=== PATIENT | male | born 1960 | race Caucasian/White ===

== ENCOUNTER 2019-04-23 00:02 | Emergency (ER) | payer OTHER ==
[2019-04-23 00:26] VITALS: BP 150/95; PULSE 95; TEMP 99.4; BMI 35.2
[2019-04-23] MEDS ORDERED: CEPHALEXIN MONOHYDRATE 500 MG CAPSULE (UD) PO ONE (00:31)
[2019-04-23] MEDS ORDERED: SULFAMETHOXAZOLE/TRIMETHOPRIM 800MG/160MG D.S. TABLET PO ONE (00:31)
[2019-04-23] MEDS ORDERED: IBUPROFEN 400 MG TABLET (FP) PO ONE ×2 (00:32→00:34)
[2019-04-23] MEDS ORDERED: CEPHALEXIN MONOHYDRATE 500 MG CAPSULE (UD) ONE (00:36)
[2019-04-23] MEDS ORDERED: SULFAMETHOXAZOLE/TRIMETHOPRIM 800MG/160MG D.S. TABLET ONE (00:40)
--- NOTE | 2019-04-23 01:18 | PDOC ---
History of Present Illness - General Chief Complaint: Abscess Boil Stated Complaint: SORE, FEVER Time Seen by Provider: 04/23/19 00:16 History Source: Patient Exam Limitations: No Limitations Past History - Past Medical History Allergies/Adverse Reactions: Allergies Allergy/AdvReac Type Severity Reaction Status Date / Time No Known Allergies Allergy Verified 04/23/19 00:26 Home Medications: Ambulatory Orders Cephalexin [Keflex] 500 mg PO QID #39 capsule 04/23/19 Sulfamethoxazole/Trimethoprim [Bactrim Ds -] 1 tab PO BID #19 tablet 04/23/19 - Psycho Social/Smoking Cessation Hx Smoking History: Never smoked Have you smoked in the past 12 months: No Information on smoking cessation initiated: No Hx Alcohol Use: No Drug/Substance Use Hx: No *Physical Exam - Vital Signs Last Vital Signs Temp Pulse Resp BP Pulse Ox 99.4 F 95 H 20 150/95 98 04/23/19 00:22 04/23/19 00:22 04/23/19 00:22 04/23/19 00:22 04/23/19 00:22 - Physical Exam General Appearance: No: Apparent Distress Extremity: positive: Other (large area of induration along R outer buttock ( around 4x4 cm) with center of fluctuance, +surrounding warmth and erythema, no streaking, rectal site not involved) Neurologic: positive: Alert, Normal Mood/Affect Procedures - Incision and Drainage I&D Site: Right: Buttock Betadine cleansed: Yes Anesthesia: 1% Lidocaine Blade Size: 11 Attempts: 1 Iodinated Packin/4 in Complications: none Dressing: Yes (sterile gauze) Medical Decision Making - Medical Decision Making 58 y/o M with no sig pmh presents with R buttock abscess x 2 days. Mentions he popped it himself and noticed pustular discharge and there is still some bleeding from the site so wanted to get it evaluated. Denies ever having an abscess before. Denies fever, sob, cp, abd pain, rectal pain. Abscess with surrounding cellulitis I&D done - mostly serosanguineous drainage with small amount of pus Site packed Given Motrin for pain Started on Keflex and bactrim due to cellulitis 04/23/19 01:15 Discharge - Discharge Information Problems reviewed: Yes Clinical Impression/Diagnosis: Abscess and cellulitis of gluteal region Condition: Stable Disposition: HOME - Admission No - Additional Discharge Information Prescriptions: Cephalexin [Keflex] 500 mg PO QID #39 capsule Sulfamethoxazole/Trimethoprim [Bactrim Ds -] 1 tab PO BID #19 tablet Prescription Drug Monitoring Program (I-STOP) results: I-STOP not reviewed - Follow up/Referral - Patient Discharge Instructions Patient Printed Discharge Instructions: DI for Incision and Drainage of a Skin Abscess Additional Instructions: Thank you for choosing [facility]. It was a pleasure taking care of you. You may take Motrin 600 mg every 6 hours by mouth as needed for mild to moderate pain. Take Motrin with food. Take antibiotics as prescribed. Recommend warm compresses over site as well Please return to ED in 2 days for wound check. Return to the Emergency Department if your symptoms worsen or persist, you have fever, increased redness, streaking or other concerning symptoms. - Post Discharge Activity Work/Back to School Note: Back to Work
== END 2019-04-23 01:37 | disposition home or self-care (01) ==
LOC: JER 00:02
PROC: 0H98XZZ Drainage of Buttock Skin, External Approach (ICD-10-PCS; principal; 2019-04-23)
DX: L02.31 Cutaneous abscess of buttock (principal)
CPT/HCPCS: 99283-25

== ENCOUNTER 2019-04-25 10:51 | Emergency (ER) | payer OTHER ==
[2019-04-25 10:55] VITALS: BP 135/93; PULSE 86; TEMP 98.4; BMI 35.3
[2019-04-25] MEDS ORDERED: BACITRACIN 15 GM TUBE TOPICAL OINTMENT TP ONE (12:16)
--- NOTE | 2019-04-25 12:16 | PDOC ---
Suture Removal/Wound Check HPI - History of Present Illness Chief Complaint: Revisit,Wound Recheck Stated Complaint: FOLLOW-UP Time Seen by Provider: 04/25/19 11:56 History Source: Yes: Patient Exam Limitations: Yes: Clinical Condition Treated at: [facility] Date of Last ED visit: 04/23/19 - Previous ED Treatment Type of procedure performed on last visit: Yes: I&D of Abscess Tetanus Immunization: Yes: Up to Date Antibiotics Prescribed: Yes Past History - Past Medical History Allergies/Adverse Reactions: Allergies Allergy/AdvReac Type Severity Reaction Status Date / Time No Known Allergies Allergy Verified 04/25/19 10:55 Home Medications: Ambulatory Orders Cephalexin [Keflex] 500 mg PO QID #39 capsule 04/23/19 Sulfamethoxazole/Trimethoprim [Bactrim Ds -] 1 tab PO BID #19 tablet 04/23/19 COPD: No - Psycho Social/Smoking Cessation Hx Smoking History: Never smoked Have you smoked in the past 12 months: No Hx Alcohol Use: No Drug/Substance Use Hx: No Suture Removal/Wound Check PE - Physical Exam Laceration/Wound Check Symptoms: denies: Pain, Fever, Chills, Redness, Discharge Pain Intensity: 2 Current Severity Level: Mild Location of Laceration/Wound: right: Pelvis (right gluteal) Pain Radiation: None *Review of Systems - Review of Systems Able to Perform ROS?: Yes Constitutional: No: Chills, Fever, Malaise HEENTM: No: Symptoms Reported Respiratory: No: Symptoms reported Cardiac (ROS): No: Symptoms Reported ABD/GI: No: Symptoms Reported Musculoskeletal: Yes: Symptoms Reported, See HPI, Muscle Pain (left gluteal) Integumentary: Yes: Symptoms Reported, See HPI, Other (abscess to left gluteal) Neurological: No: Weakness All Other Systems: Reviewed and Negative *Physical Exam - Vital Signs Last Vital Signs Temp Pulse Resp BP Pulse Ox 98.4 F 86 18 135/93 99 04/25/19 10:52 04/25/19 10:52 04/25/19 10:52 04/25/19 10:52 04/25/19 10:52 - Physical Exam Comments: 04/25/19 12:33pm GENERAL: NECK: Supple. Full ROM. PULMONARY: No evidence of respiratory distress. MUSCULOSKELETAL Normal range of motion at all joints. SKIN: Warm and dry. Normal capillary refill. 1 cm area of open wound with wound packing with mild induration around wound packing. No skin erythema or or active drainage from wound site. No evidence of wound infection. NEUROLOGICAL: Alert, awake, appropriate. Gait is normal without ataxia. PSYCHIATRIC: Cooperative. Good eye contact. Appropriate mood General Appearance: Yes: Nourished, Appropriately Dressed. No: Apparent Distress Medical Decision Making - Medical Decision Making 04/25/19 12:34 Patient with significant past medical history presents for wound check of left gluteal abscess and wound packing removal status post presenting 2 days ago with abscess to left gluteal requiring I&D and wound packing. Patient report he feels the wound is getting better with improvement of abscess. Denies fever , chills, body aches or weakness. Report only pain when he states on one side. Exam significant for 1 cm area of open wound with wound packing to abscess. No skin erythema or active drainage from wound site. No evidence of wound infection. Wound packing removed with forceps without complication. Bacitracin applied to wound and wound covered with an adhesive bandage. Patient advised to continue prescribed Keflex and Bactrim antibiotics and finish it. Advised to continue with hot compresses to abscess and apply bacitracin twice a day until healed with follow-up with PCP in 5 days for reassessment. Patient voiced understanding. Patient stable for discharge Discharge - Discharge Information Problems reviewed: Yes Clinical Impression/Diagnosis: Abscess and cellulitis of gluteal region, Wound check, abscess Condition: Stable Disposition: HOME - Admission No - Follow up/Referral - Patient Discharge Instructions Patient Printed Discharge Instructions: How to Care for a Surgical Wound, DI for Wound Infection Additional Instructions: Keep taking prescribed antibiotics and examination as discussed. Apply provided bacitracin to wound twice a day until healed. Continue with ice compresses to abscess 2-3 times a day for 5 to 10 minutes as needed. Follow-up with your primary care in 5 to 7 days for wound recheck. - Post Discharge Activity
== END 2019-04-25 12:10 | disposition home or self-care (01) ==
LOC: JERFT 10:51
DX: Z48.817 Encounter for surgical aftercare following surgery on the skin and subcutaneous tissue (principal); Z48.01 Encounter for change or removal of surgical wound dressing
CPT/HCPCS: 99281-25

== ENCOUNTER 2020-10-24 09:20 | Emergency (ER) | payer OTHER ==
[2020-10-24 09:32] VITALS: BP 153/97; PULSE 62; TEMP 98.2; BMI 35.5
== END 2020-10-24 10:28 | disposition home or self-care (01) ==
LOC: JER 09:20
DX: G51.0 Bell's palsy (principal)
CPT/HCPCS: 99281-25

== ENCOUNTER 2023-01-19 16:03 | Emergency (ER) | payer OTHER ==
[2023-01-19 16:17] VITALS: BP 145/90; PULSE 86; RESP 18; TEMP 98.6; BMI 33.9
[2023-01-19] MEDS ORDERED: DIPHTH,PERTUSS(ACELL),TET 0.5 ML DISP.SYRIN IM ONE ×2 (16:42→16:44)
== END 2023-01-19 17:54 | disposition home or self-care (01) ==
LOC: JERFT 16:03 → JER 16:03 → JERFT 17:54
PROC: 0HQFXZZ Repair Right Hand Skin, External Approach (ICD-10-PCS; principal; 2023-01-19)
PROC: 3E0234Z Introduction of Serum, Toxoid and Vaccine into Muscle, Percutaneous Approach (ICD-10-PCS; 2023-01-19)
DX: S61.212A Laceration without foreign body of right middle finger without damage to nail, initial encounter (principal); W27.4XXA Contact with kitchen utensil, initial encounter; Y99.0 Civilian activity done for income or pay
CPT/HCPCS: 73140-TC-RT-FY; 90715; 99283-25

== ENCOUNTER 2023-12-26 12:41 | Inpatient (IN) | payer BC ==
[2023-12-26 13:52] LABS: EPI CELLS 6 /uL (0-25.1); HYALINE CASTS 0 /uL (0-3.1); PH,URINE 5.5 (5.0-8.0); URINE APPEARANCE CLEAR; URINE BACTERIA 10 /uL (0-1359); URINE BILIRUBIN NEGATIVE (NEGATIVE); URINE COLOR YELLOW; URINE GLUCOSE (UA) NEGATIVE (NEGATIVE); URINE KETONE NEGATIVE (NEGATIVE); URINE LEUK ESTERASE NEGATIVE (NEGATIVE); URINE NITRITE NEGATIVE (NEGATIVE); URINE PROTEIN NEGATIVE (NEGATIVE); URINE RBC 130 /uL (0-23.9); URINE UROBILINOGEN 0.2 mg/dL (0.2-1.0); URINE WBC 5 /uL (0-25.8)
[2023-12-26] MEDS ORDERED: ACETAMINOPHEN INJECTION 100 ML IVPB ONE (15:04)
[2023-12-26] MEDS: ACETAMINOPHEN 1000 MG/100 ML BAG IVPB ONE (15:08)
[2023-12-26 15:12] LABS: BASO % 0.2 % (0-2.0); EOS % 0.1 % (0-4.5); HEMATOCRIT 43.2 % (35.4-49); HEMOGLOBIN 14.5 GM/dL (11.7-16.9); LYMPH % 5.8 % (8-40); MCH 30.3 pg (25.7-33.7); MCHC 33.5 g/dl (32.0-35.9); MEAN CELL VOLUME 90.5 fl (80-96); MEAN PLT VOLUME 8.2 fl (7.5-11.1); MONO % 7.6 % (3.8-10.2); NEUT % 86.3 % (42.8-82.8); PLATELET COUNT 328 10^3/uL (134-434); RBC 4.77 M/mm3 (4.00-5.60); RDW 14.2 % (11.9-15.9); WHITE BLOOD COUNT 19.5 K/mm3 (4.0-10.0)
[2023-12-26 15:26] LABS: POTASSIUM 4.1 mmol/L (3.5-5.1)
[2023-12-26 15:27] LABS: CALCIUM 9.1 mg/dL (8.5-10.1)
[2023-12-26 15:28] LABS: ALBUMIN 4.3 g/dl (3.4-5.0); BLOOD UREA NITROGEN 22.7 mg/dL (7-18)
[2023-12-26 15:33] LABS: BILIRUBIN,TOTAL 0.3 mg/dL (0.2-1); TOT PROT 7.5 g/dl (6.4-8.2)
[2023-12-26] MEDS ORDERED: KETOROLAC TROMETHAMINE 30 MG/1 ML VIAL ONE (18:46)
[2023-12-26] MEDS: KETOROLAC TROMETHAMINE 30 MG/1 ML VIAL IM ONE (18:55)
[2023-12-26] MEDS: SODIUM CHLORIDE 1,000 ML IV STA (18:55)
[2023-12-26] MEDS ORDERED: KETOROLAC TROMETHAMINE 15 MG/ML VIAL IVPUSH PRN (21:52)
[2023-12-26] MEDS: SODIUM CHLORIDE 1,000 ML IV SCH (22:24)
[2023-12-26 23:44] VITALS: BMI 33.8
[2023-12-27 09:28] LABS: HEMATOCRIT 39.7 % (35.4-49); HEMOGLOBIN 13.6 GM/dL (11.7-16.9); MCH 30.7 pg (25.7-33.7); MCHC 34.2 g/dl (32.0-35.9); MEAN CELL VOLUME 89.9 fl (80-96); MEAN PLT VOLUME 8.3 fl (7.5-11.1); PLATELET COUNT 288 10^3/uL (134-434); RBC 4.42 M/mm3 (4.00-5.60); RDW 13.9 % (11.9-15.9); WHITE BLOOD COUNT 10.9 K/mm3 (4.0-10.0)
[2023-12-27 09:47] LABS: POTASSIUM 3.8 mmol/L (3.5-5.1)
[2023-12-27 10:06] LABS: BLOOD UREA NITROGEN 15.4 mg/dL (7-18); CALCIUM 8.5 mg/dL (8.5-10.1); MAGNESIUM 2.1 mg/dL (1.8-2.4)
[2023-12-27 10:09] LABS: CREATININE 0.6 mg/dL (0.55-1.3)
[2023-12-29] MEDS ORDERED: FENTANYL CITRATE/PF 50 MCG/ML VIAL ONE ×3 (10:11→11:27)
[2023-12-29] MEDS ORDERED: MIDAZOLAM HCL 2 MG/2 ML SINGLE DOSE VIAL ONE (10:11)
[2023-12-29] MEDS ORDERED: PROPOFOL 20 ML ONE (10:15)
[2023-12-29] MEDS: ceFAZolin SODIUM 1 GM VIAL IVPB ONE (10:20)
[2023-12-29] MEDS ORDERED: ONDANSETRON 4 MG/2 ML VIAL IVPUSH PRN ×2 (11:14→11:25)
[2023-12-29] MEDS ORDERED: KETOROLAC TROMETHAMINE 15 MG/ML VIAL IVPUSH PRN (11:25)
[2023-12-29] MEDS: SODIUM CHLORIDE 1,000 ML IV SCH (11:55)
[2023-12-29] MEDS: LACTATED RINGERS SOLUTION 1,000 ML IV SCH (11:55)
[2023-12-29 13:29] LABS: HEMATOCRIT 41.6 % (35.4-49); HEMOGLOBIN 14.1 GM/dL (11.7-16.9); MCH 30.6 pg (25.7-33.7); MCHC 33.9 g/dl (32.0-35.9); MEAN CELL VOLUME 90.1 fl (80-96); MEAN PLT VOLUME 8.2 fl (7.5-11.1); PLATELET COUNT 313 10^3/uL (134-434); RBC 4.62 M/mm3 (4.00-5.60); RDW 13.8 % (11.9-15.9); WHITE BLOOD COUNT 11.4 K/mm3 (4.0-10.0)
[2023-12-29 13:51] LABS: ANISOCYTOSIS 0; MACROCYTOSIS 0; POTASSIUM 4.5 mmol/L (3.5-5.1)
[2023-12-29 13:53] LABS: ALBUMIN 3.8 g/dl (3.4-5.0); BLOOD UREA NITROGEN 9.5 mg/dL (7-18); CALCIUM 9.1 mg/dL (8.5-10.1)
[2023-12-29 13:56] LABS: CREATININE 0.8 mg/dL (0.55-1.3)
[2023-12-29 14:02] LABS: BILIRUBIN,TOTAL 0.5 mg/dL (0.2-1)
[2023-12-29 14:50] VITALS: BP 116/70; PULSE 69; RESP 16; TEMP 98.4
[2023-12-30] MEDS ORDERED: TAMSULOSIN HCL 0.4 MG CAP PO SCH (08:30)
== END 2023-12-29 16:17 | disposition home or self-care (01) | DRG 661 ==
LOC: JER 12:41 → JERBED 20:23 → J5S 22:50
PROVIDERS: ADMIT Internal Medicine
PROC: 0T768DZ Dilation of Right Ureter with Intraluminal Device, Via Natural or Artificial Opening Endoscopic (ICD-10-PCS; principal; 2023-12-29 10:00)
PROC: BT1DZZZ Fluoroscopy of Right Kidney, Ureter and Bladder (ICD-10-PCS; 2023-12-29 10:00)
DX: N13.6 Pyonephrosis (principal); I10 Essential (primary) hypertension; N40.0 Benign prostatic hyperplasia without lower urinary tract symptoms; D72.829 Elevated white blood cell count, unspecified
CPT/HCPCS: 36415; 74177-TC; 76000-TC-FY; 76870-TC; 80048; 80053; 81003; 83735; 84100; 85025; 85027; 87086; 94760; 99285-25; C1758; C2617; J0131; Q9967

== ENCOUNTER → 2024-01-26 | Day surgery (SDC) | payer BC ==
[2024-01-19 11:46] VITALS: BMI 32.8
[2024-01-26 11:35] VITALS: BP 116/82; PULSE 71; RESP 18; TEMP 97.7
== END | disposition home or self-care (01) ==
LOC: JASU-SURG 04:49
PROVIDERS: ATTEND Urology
DX: Z53.8 Procedure and treatment not carried out for other reasons (principal)

== ENCOUNTER 2024-03-08 04:21 | Day surgery (SDC) | payer BC ==
[2024-03-04 14:25] VITALS: BMI 32.8
[2024-03-08 11:08] VITALS: TEMP 97.8
[2024-03-08] MEDS ORDERED: MIDAZOLAM HCL 2 MG/2 ML SINGLE DOSE VIAL ONE ×2 (14:38→14:45)
[2024-03-08 17:24] VITALS: BP 129/82; PULSE 58; RESP 18
== END 2024-03-08 17:00 | disposition home or self-care (01) ==
LOC: JASU-SURG 04:21
PROVIDERS: ATTEND Urology
PROC: 0TF3XZZ Fragmentation in Right Kidney Pelvis, External Approach (ICD-10-PCS; principal; 2024-03-08 14:45)
DX: N20.0 Calculus of kidney (principal)

== ENCOUNTER 2024-11-15 05:17 | Day surgery (SDC) | payer BC ==
[2024-11-11 11:41] VITALS: BMI 32.8
[2024-11-15 07:37] VITALS: RESP 18
[2024-11-15] MEDS ORDERED: MIDAZOLAM HCL 2 MG/2 ML SINGLE DOSE VIAL ONE (09:17)
[2024-11-15 11:43] VITALS: BP 148/83; PULSE 55; TEMP 98
== END 2024-11-15 11:14 | disposition home or self-care (01) ==
LOC: JASU-SURG 05:17
PROVIDERS: ATTEND Urology
PROC: 0TF4XZZ Fragmentation in Left Kidney Pelvis, External Approach (ICD-10-PCS; principal; 2024-11-15 09:30)
DX: N20.0 Calculus of kidney (principal)